=== PATIENT | male | born 1950 | race Caucasian/White ===

== ENCOUNTER 2018-04-27 20:12 | Inpatient (IN) | payer OTHER, MEDICARE ==
[2018-04-27] VITALS (13 sets, daily range): BP systolic 63–115; BP diastolic 39–81
[~2018-04-27] VITALS: Ht 182.9 cm; Wt 94.5 kg
--- NOTE | ~2018-04-27 | OP ---
PATIENT NAME: ARGENIS ALONSO MEDICAL RECORD: [id number] :48 LOCATION:[facility] ADMISSION DATE:04/28/18 SURGEON: ABA MORALES MD DATE OF OPERATION: 04/27/2018 PREOPERATIVE DIAGNOSES: 1. Acute postoperative hemorrhoidal bleeding. 2. Hemorrhagic shock secondary to hemorrhoidal bleeding. 3. HIV. POSTOPERATIVE DIAGNOSES: 1. Acute postoperative hemorrhoidal bleeding. 2. Hemorrhagic shock secondary to hemorrhoidal bleeding. 3. HIV. PROCEDURE: Anal exam under local anesthesia with ligation of hemorrhoidal bleeding vessel. SURGEON: Aba Morales MD REPORT OF PROCEDURE: The patient's anus was prepped and draped, and a total of 10 mL of 1% lidocaine with epinephrine was infused into the surrounding tissues. An anoscope was inserted and there was a significant amount of blood present, which was suctioned and irrigated out. Once this was done, I could see there was an open wound on the right lateral aspect of the anus at the 9 o'clock position. I oversewed this entire wound using a running 2-0 chromic. At the conclusion of this, there was still some active bleeding present. When I reinspected the area, I could see actual pulsatile bleeding from the base of the wound. At this point, a unkgcr-cw-xubin 2-0 chromic stitch was placed at the base of this and this discontinued any bleeding. We irrigated out the wound one last time and saw there was no sign of any active pulsatile bleeding. At this point, the anoscope was removed. COMPLICATIONS: None. CONDITION: Critical. ANESTHESIA: Local. BLOOD LOSS: 100 mL. Procedure was done in the ER. TRANSINT:[id number] Voice Confirmation ID: [id number] DOCUMENT ID: [id number] ABA MORALES MD at 1714 CC: [id number] DICTATION DATE: 05/03/18 1304 DIRECTOR OF RETAIL OPERATIONS: 05/03/18 1331 DIS IN 04/28/18 [place] [id number]
--- NOTE | ~2018-04-27 | HP ---
PATIENT: ARGENIS HERNANDEZ MEDICAL RECORD: [id number] ACCOUNT: [id number] LOCATION:[facility] D.CV07 : 48 ADMISSION DATE: 04/28/18 PCP: DOCTOR ALPHONSO HISTORY AND PHYSICAL EXAMINATION CHIEF COMPLAINT: Anal bleeding. HISTORY OF PRESENT ILLNESS: Mr. Hernandez is a 67-year-old white male who underwent a hemorrhoid ligation/cauterization at the [facility] last week. He said he has been doing well with no pain, but developed severe bleeding today. The bleeding was bright red and he figures it was over a liter of fluid. He has continued to have significant bleeding after presenting to the Emergency Room. Upon evaluation, his blood pressure was systolic in the 60s. He is lightheaded and nauseated at this time. He is having active bleeding during the examination. He does have a history of HIV positivity. His partner is with him in the Emergency Room. He has gotten 2 units of blood already. His initial hemoglobin was 14.8. PAST MEDICAL HISTORY: 1. HIV. 2. Hypertension. PAST SURGICAL HISTORY: Hemorrhoidectomy. MEDICATIONS: 1. Triumeq. 2. Finasteride. 3. Nifedipine. 4. Simvastatin. 5. Flomax. 6. Fluticasone nasal spray. ALLERGIES: No known drug allergies. SOCIAL HISTORY: Denies any tobacco or alcohol use. FAMILY HISTORY: Noncontributory. REVIEW OF SYSTEMS: GENERAL: Denies any fevers, chills or night sweats and no weight gain or weight loss. HEENT: No vision changes. No scleral icterus. RESPIRATORY: No cough, wheezing or shortness of breath. CARDIOVASCULAR: No chest pain or shortness of breath. GASTROINTESTINAL: He reports nausea, but denies vomiting or abdominal pain. MUSCULOSKELETAL: Denies joint or muscle pain. HEMATOLOGIC: He reports anal bleeding, but no history of easy bruising or bleeding. SKIN: Denies jaundice or rashes. LABORATORY DATA: White count 9.6, hemoglobin 14.8, and platelets 302. PT 12.5, INR 0.97. Sodium 141, potassium 4.1, chloride 103, BUN 34, creatinine 1.9. LFTs are all within normal limits. PHYSICAL EXAMINATION: HISTORY AND PHYSICAL [id number] ARGENIS HERNANDEZ VITAL SIGNS: Current blood pressure is 64/40, heart rate in the 120s. The patient is afebrile. GENERAL: He is well-developed, well-nourished, in no apparent distress with the skin looking a little mottled. HEENT: No scleral icterus. LUNGS: No apparent distress and no wheezing. HEART: Sinus tachycardia. ABDOMEN: Soft, nontender, nondistended with no sign of a hernia. RECTAL: He has an area of inflamed rectal tissue with an open wound on the right lateral rectum at about the 9 o'clock position with active blood clots and bleeding coming from the anus and rectum. EXTREMITIES: No clubbing, cyanosis or edema. NEUROLOGIC: Grossly intact. SKIN: No rashes, lesions or ulcerations. ASSESSMENT AND PLAN: 1. The patient with rectal bleeding, status post hemorrhoidectomy - under local anesthesia the patient's hemorrhoidal bleeding was contained with a 2-0 chromics in the Emergency Room, a pulsatile bleeding vessel was found at the base of the hemorrhoid wound. 2. Human immunodeficiency virus - the patient will be admitted to the hospital and placed on his home human immunodeficiency virus medications. 3. Hemorrhagic shock - secondary to hemorrhoidal bleeding, the patient will be admitted to the hospital for observation in the intensive care unit and serial H&H's. TRANSINT:[id number] Voice Confirmation ID: [id number] DOCUMENT ID: [id number] JP MORALES MD at 1714 CC: [id number] DICTATION DATE: 05/03/18 1302 BENCH PATTERNMAKER METAL: 05/03/18 1422 DIS IN 04/28/18 [facility] [address] [place] [address]
[2018-04-27] MEDS ORDERED: PROSCAR5 MG PO (20:25)
[2018-04-27] MEDS ORDERED: TRIUMEQ TABLET1 EACH PO (20:25)
[2018-04-27] MEDS ORDERED: NIFEDIPINE ER90 MG (20:26)
[2018-04-27] MEDS ORDERED: ZOCOR80 MG PO (20:26)
[2018-04-27] MEDS ORDERED: FLOVENT DISKU100 MCG (20:26)
[2018-04-27] MEDS ORDERED: FLOMAX0.4 MG PO (20:26)
[2018-04-27] MEDS ORDERED: FLUTICASONE PRO16 GM NASAL (20:27)
[2018-04-27 20:41] LABS: BASOPHILS 0.2 % (0-2); EOSINOPHILS 2.5 % (0-7); HEMATOCRIT 42.9 % (42.0-54.0); HEMOGLOBIN 14.8 g/dL (13.5-17.5); IMMATURE GRANULOCYTES 0.2 % (0-5); MCH 34.6 pg (26.0-34.0); MCHC 34.5 g/dL (31.0-37.0); MCV 100.2 fL (80.0-100.0); MEAN PLATELET VOLUME 10.2 fL (7.4-10.4); MONOCYTES 5.5 % (2-11); NEUTROPHILS 48.6 % (40-80); PLATELET COUNT 302 10x3/uL (130-400); RBC 4.28 10x6/uL (4.20-6.10); RDW 12.4 % (11.5-14.5); WBC 9.6 10x3/uL (4.8-10.8)
[2018-04-27 20:51] LABS: INR 0.97 (0.85-1.17); PROTIME 12.5 SECONDS (11.6-15.0)
[2018-04-27 20:58] LABS: ALBUMIN 3.3 g/dL (3.4-5.0); ANION GAP 15.2 mmol/L (8-16); BILIRUBIN - TOTAL 0.25 mg/dL (0.2-1.3); CALCIUM 8.8 mg/dL (8.5-10.1); CARBON DIOXIDE 26.9 mmol/L (21.0-32.0); CREATININE - SERUM 1.9 mg/dL (0.6-1.3); POTASSIUM - SERUM 4.1 mmol/L (3.5-5.1); PROTEIN - SERUM 7.1 g/dL (6.4-8.2)
[2018-04-28] VITALS (14 sets, daily range): BP systolic 110–165; BP diastolic 71–98; Ht 182.9 cm; Wt 94.5 kg
[2018-04-28 02:54] LABS: HEMOGLOBIN 13.1 g/dL (13.5-17.5)
[2018-04-28 06:43] LABS: BASOPHILS 0 % (0-2); EOSINOPHILS 0.5 % (0-7); HEMATOCRIT 37.1 % (42.0-54.0); HEMOGLOBIN 12.9 g/dL (13.5-17.5); IMMATURE GRANULOCYTES 0.3 % (0-5); LYMPHOCYTES 29.3 % (15-50); MCH 32.5 pg (26.0-34.0); MCHC 34.8 g/dL (31.0-37.0); MEAN PLATELET VOLUME 9.7 fL (7.4-10.4); NEUTROPHILS 64.9 % (40-80); RBC 3.97 10x6/uL (4.20-6.10); RDW 16.1 % (11.5-14.5); WBC 8.8 10x3/uL (4.8-10.8)
[2018-04-28 06:49] LABS: MCV 93.5 fL (80.0-100.0); PLATELET COUNT 192 10x3/uL (130-400)
[2018-04-28 07:21] LABS: ALBUMIN 2.8 g/dL (3.4-5.0); ANION GAP 12.1 mmol/L (8-16); BILIRUBIN - TOTAL 0.31 mg/dL (0.2-1.3); CALCIUM 7.8 mg/dL (8.5-10.1); CARBON DIOXIDE 25.9 mmol/L (21.0-32.0); CREATININE - SERUM 1.5 mg/dL (0.6-1.3); PROTEIN - SERUM 5.8 g/dL (6.4-8.2)
[2018-04-28 12:12] LABS: HEMATOCRIT 37.5 % (42.0-54.0); HEMOGLOBIN 13.2 g/dL (13.5-17.5)
[2018-04-28] MEDS ORDERED: NORCO-10 PO (12:42)
== END 2018-04-28 15:13 | disposition home or self-care (01) | DRG 920 ==
LOC: D.ER 20:12 → D.CVICU 22:39 → D.EDHOLD 22:39 → OBSVTIME 22:39 → D.CVICU 23:13
PROVIDERS: Family Medicine; Surgery
PROC: 0W3P8ZZ Control Bleeding in Gastrointestinal Tract, Via Natural or Artificial Opening Endoscopic (ICD-10-PCS; principal; 2018-04-28)
DX: K91.840 Postprocedural hemorrhage of a digestive system organ or structure following a digestive system procedure (principal); K62.5 Hemorrhage of anus and rectum; T81.19XA Other postprocedural shock, initial encounter; I10 Essential (primary) hypertension; Y83.8 Other surgical procedures as the cause of abnormal reaction of the patient, or of later complication, without mention of misadventure at the time of the procedure; Z21 Asymptomatic human immunodeficiency virus [HIV] infection status

== ENCOUNTER 2019-02-27 11:56 | Emergency (ER) | payer OTHER ==
[~2019-02-27] VITALS: Ht 182.9 cm; Wt 100.0 kg
[~2019-02-27 11:56] MED LIST: FLOMAX0.4 MG PO; FLOVENT DISKU100 MCG; FLUTICASONE PRO16 GM NASAL; NIFEDIPINE ER90 MG; NORCO-10 PO; PROSCAR5 MG PO; TRIUMEQ TABLET1 EACH PO; ZOCOR80 MG PO
[2019-02-27 12:01] VITALS: Ht 182.9 cm; Wt 100.0 kg
[2019-02-27 12:24] LABS: BASOPHILS 0.2 % (0-2); HEMATOCRIT 43.3 % (42.0-54.0); HEMOGLOBIN 15.5 g/dL (13.5-17.5); IMMATURE GRANULOCYTES 0.2 % (0-5); LYMPHOCYTES 26.3 % (15-50); MCH 35.6 pg (26.0-34.0); MCHC 35.8 g/dL (31.0-37.0); MCV 99.5 fL (80.0-100.0); MEAN PLATELET VOLUME 10.9 fL (7.4-10.4); MONOCYTES 3.8 % (2-11); NEUTROPHILS 68.5 % (40-80); PLATELET COUNT 217 10x3/uL (130-400); RBC 4.35 10x6/uL (4.20-6.10); RDW 12.7 % (11.5-14.5); WBC 12.3 10x3/uL (4.8-10.8)
[2019-02-27 12:33] LABS: ALBUMIN 3.6 g/dL (3.4-5.0); ALKALINE PHOSPHATASE 86 U/L (46-116); ALT (SGPT) 17 U/L (10-68); BILIRUBIN - TOTAL 0.67 mg/dL (0.2-1.3); CALC OSMOLALITY 294 mosm/kg (275-300); CALCIUM 8.5 mg/dL (8.5-10.1); CARBON DIOXIDE 25.9 mmol/L (21.0-32.0); CHLORIDE - SERUM 107 mmol/L (98-107); CREATININE - SERUM 2.1 mg/dL (0.6-1.3); POTASSIUM - SERUM 3.5 mmol/L (3.5-5.1); PROTEIN - SERUM 7.3 g/dL (6.4-8.2); SODIUM 139 mmol/L (136-145); UREA NITROGEN 38 mg/dL (7-18); eGFR NON AFRICAN AMERICAN 33 mL/min (90-120)
[2019-02-27 12:37] LABS: GLUCOSE 246 mg/dL (74-106)
[2019-02-27 12:44] LABS: APTT 27.1 SECONDS (22.8-39.4); INR 1.05 (0.85-1.17); PROTIME 13.2 SECONDS (11.6-15.0)
[2019-02-27 12:45] LABS: CKMB 0.7 U/L (0.0-3.6); CREATINE KINASE 74 UL (21-232); MAGNESIUM - SERUM 2.1 mg/dL (1.8-2.4)
[2019-02-27 12:46] LABS: TROPONIN-I < 0.017 ng/mL (0.000-0.060)
[2019-02-27 20:53] VITALS: BP 137/79
--- NOTE | 2019-03-04 11:13 | EC ---
PATIENT:ARGENIS ALONSO DATE OF SERVICE: 02/27/19 SEX: M MEDICAL RECORD: [id number] DATE OF : 48 LOCATION:[facility] AGE OF PATIENT: 68 ADMISSION DATE: 02/27/19 REFERRING PHYSICIAN: INTERPRETING PHYSICIAN: ANITA ALEJO MD ECHOCARDIOGRAM REPORT ECHO CHARGES 4 ECHO COMPLETE Date: 02/27/19 CLINICAL DIAGNOSIS: [place] ECHOCARDIOGRAPHIC MEASUREMENTS (adult normal given) AC root (d.<3.7cm) 3.7 cm LV Septum d (<1.2 cm> 1.4 cm Valve Excursion 2. cm LV Septum (systole) 2.3 cm Left Atria (s.<4.0cm> 3.2 cm LVPW d(<1.2cm) 1.2 cm RV (d.<2.3cm) 3.0 cm LVPW (sytole) 2.2 cm LV diastole(<5.6CM) 6.3 cm MV E-F(>70mm/sec) cm LV systole 3.5 cm LVOT Diameter 2.2 cm MV exc.(>10mm) cm Est.ejection fraction (50-75%) % DOPPLER: LVIT cm/sec A 69.0 cm/sec E 90.0 cm/sec LA cm/sec RVSP 36.2 mmHg LVOT 92.0 cm/sec AOP1/2T m/s Asc. Ao 114 cm/sec RVOT 51.0 cm/sec RA cm/sec PA 73.0 cm/sec AV Gradient Peak 5.2 mmHg AV Mean 3.2 mmHg AV Area 2.9 cm MV Gradient Peak 5.6 mmHg MV Mean 2.1 mmHg MV Area cm COMMENTS: Warehouse Associate: Sofia ASHFORDOE Ammonia Nitrate Operator: 1 Dr. Alejo TAPE# PACS Pericardial Effusion N DATE OF SERVICE: 02/27/2019 FINDINGS: 1. Left ventricular chamber size is mildly dilated. Left ventricular systolic function is preserved at 55% to 60%. 2. Left atrium, right atrium, and right ventricle chamber sizes are within normal limits. 3. Valvular structures have normal structure and motion. 4. Doppler interrogation reveals mild aortic insufficiency, mild mitral regurgitation, ddcm-ml-vhpanwhe tricuspid regurgitation, no other valvular ECHOCARDIOGRAM REPORT [id number] ARGENIS ALONSO insufficiency or stenosis. Pulmonary systolic pressure is preserved at 36 mmHg. 5. No evidence of pericardial effusion or left ventricular thrombus. TRANSINT:[id number] Voice Confirmation ID: [id number] DOCUMENT ID: [id number] ANITA ALEJO MD at 1113 CC: [id number] DICTATION DATE: 02/28/19922 [employer]OURCE INTELLIGENCE: 02/28/19 0945 DEP ER 02/27/19 [facility] [address] [place] [id number]
--- NOTE | 2019-03-04 11:13 | HP ---
PATIENT: ARGENIS HERNANDEZ MEDICAL RECORD: [id number] ACCOUNT: [id number] LOCATION:[facility] : 48 ADMISSION DATE: 02/27/19 PCP: DOCTOR ALPHONSO HISTORY AND PHYSICAL EXAMINATION DIAGNOSES: 1. Unstable angina. 2. Abnormal ECG. 3. Hypertension. 4. Hyperlipidemia. HISTORY OF PRESENT ILLNESS: Mr. Hernandez has no cardiac history. He presents with acute onset of very typical chest discomfort this morning with a heavy dull aching sensation with radiation down his arm. His EKG has ST depression and T wave inversions in the inferior leads. He has had aspirin today. He continues to have the chest discomfort. PHYSICAL EXAMINATION: GENERAL APPEARANCE: Well-nourished, well-developed, appears stated age. Level of distress, comfortable. PSYCHIATRIC: Mental status, alert, normal affect. Orientation, oriented to time, place and person. EYES: Lids and conjunctiva, noninjected. No discharge, no pallor. ENT: Lips, teeth, gums, normal dentition. Oropharynx, no cyanosis, no pallor. NECK: Carotid arteries, bilateral normal upstroke, no bruits, no thrills. JUGULAR VEINS: No jugular venous pressure or distention. CERVICAL LYMPH NODES: Nontender, nonenlarged. THYROID: Not enlarged. Nontender. No nodules. LUNGS: Respiratory effort, unlabored. CHEST: Normal curvature. No thoracic deformity. No chest wall tenderness. Percussion, resonant. Auscultation, clear. No wheezes, no rales, no rhonchi. CARDIOVASCULAR: Precordial exam, nondisplaced. No heaves or pericardial thrills. Rate and rhythm, regular. Heart sounds, normal S1, normal S2. No S3, no gallop, no rub. Systolic murmur, not heard. Diastolic murmur, not heard. EXTREMITIES: No cyanosis, no edema. Peripheral pulses, full and equal in all extremities, except as noted. No bruits appreciated. ABDOMEN: Soft, nondistended. Normal aorta. No bruit. Nontender. No masses. Liver, nontender, no hepatomegaly. Spleen, nontender, no splenomegaly. MUSCULOSKELETAL: No joint tenderness. No joint swelling. No erythema. NEUROLOGICAL: Normal gait, normal strength, normal tone. SKIN: Warm and dry. OVERALL IMPRESSION: Chest discomfort with EKG changes. Most likely, he does have hemodynamically significant coronary artery disease. We will proceed with coronary angiography. We will optimize medical management by continuing his calcium channel shruti, adding a beta-shruti and a long-acting nitrate. Proceed with coronary angiography if he continues to have symptomatology. TRANSINT:[id number] Voice Confirmation ID: [id number] DOCUMENT ID: [id number] HISTORY AND PHYSICAL [id number] ARGENIS EHRNANDEZ JEFFREY MD at 1113 CC: [id number] DICTATION DATE: 02/27/19 1216 HARPSICHORD MAKER: 02/27/19 1232 DEP ER 02/27/19 [place] [id number] [place] [address]
== END 2019-02-27 20:53 | disposition other institution (70) ==
LOC: D.ER 11:56
PROVIDERS: Family Medicine
DX: R07.9 Chest pain, unspecified (principal); R73.9 Hyperglycemia, unspecified; I10 Essential (primary) hypertension; N28.9 Disorder of kidney and ureter, unspecified